=== PATIENT | male | born 1965 | race Caucasian/White ===

== ENCOUNTER 2017-07-06 10:36 | Emergency (ER) | payer MEDICAID | END 2017-07-06 12:44 | disposition home or self-care (01) | LOC: D.ER 10:36 | DX: S40.862A Insect bite (nonvenomous) of left upper arm, initial encounter (principal); S40.861A Insect bite (nonvenomous) of right upper arm, initial encounter; S30.861A Insect bite (nonvenomous) of abdominal wall, initial encounter; W57.XXXA Bitten or stung by nonvenomous insect and other nonvenomous arthropods, initial encounter; Y93.89 Activity, other specified; Y92.019 Unspecified place in single-family (private) house as the place of occurrence of the external cause; F17.200 Nicotine dependence, unspecified, uncomplicated ==

== ENCOUNTER 2017-07-15 19:17 | Emergency (ER) | payer MEDICAID | END 2017-07-15 22:25 | disposition home or self-care (01) | LOC: D.ER 19:17 | DX: L50.9 Urticaria, unspecified (principal); Z79.52 Long term (current) use of systemic steroids ==